=== PATIENT | female | born 2000 | race Caucasian/White ===

== ENCOUNTER 2018-05-07 06:24 | Emergency (ER) | payer BC ==
[~2018-05-07] VITALS: Ht 160 cm; Wt 81.0 kg
[2018-05-07] MEDS ORDERED: IBUPROFEN 600MG TABLET PO STA (07:21)
[2018-05-07 08:50] VITALS: BP 122/74
== END 2018-05-07 09:09 | disposition home or self-care (01) ==
LOC: ER 06:25
DX: R07.89 Other chest pain (principal); N64.4 Mastodynia
CPT/HCPCS: 71045; 81025; 82962; 93005; 99284; Z7610